=== PATIENT | female | born 1935 | race Caucasian/White ===

== ENCOUNTER 2018-02-16 12:50 | Inpatient (IN) | payer OTHER ==
[2018-02-16] VITALS (12 sets, daily range): BP systolic 106–149; BP diastolic 50–75
[~2018-02-16] VITALS: Ht 162.6 cm; Wt 99.6 kg
[~2018-02-16 12:50] MED LIST: ACIPHEX20 MG PO; ADVAIR DISK1 INH; ALLOPURINOL100 MG PO; AMITRIPTYLIN10 MG PO; AVELOX400 MG PO; CALCIUM600 M3 OR; CIPRO500 MG PO; DIGOXIN0.125 MG PO; DOCUSATE SOD100 MG PO; ELAVIL10 MG PO; ELTROXIN PO; ENALAPRIL20 MG PO; EZETROL PO; FUROSEMIDE40 MG PO; HYDROCORTISONE 1%; LEVOTHYROXIN150 MC1 PO; LIPITOR10 MG PO; LOSARTAN POT50 MG PO; METFORMIN500 MG PO; MICROLET; NORVASC10 MG PO; NUCYNTA50 MG OR; NUCYNTA75 MG OR; OMEPRAZOLE20 MG PO; PLAVIX75 MG PO; PREDNISONE20 MG PO; PROAIR HFA IN; PROTONIX40 M2 PO; QUININE PO; ROBITUSSIN AC10 ML PO; SYNTHROID200 MCG OR; TAM75CAP PO; TEARS PLUS OP; TRAMADOL HYDROC OR; TYLENOL ARTH650 M1 OR; VITAMIN D1000 UNIT OR; XALATAN0.005 % OP; ZEBETA5 MG PO; ZETIA10 MG PO; ZOVIRAX5 % EX; ZPAK PO; [UNRECOGNIZED DRUG - OTHER] PO; [UNRECOGNIZED DRUG - OTHER] PO
[2018-02-16] MEDS ORDERED: LOSARTAN POTASS50 MG PO (13:25)
[2018-02-16] MEDS ORDERED: BISOPROL FUM5 MG PO (13:32)
[2018-02-16 13:36] LABS: HEMOGLOBIN 11.6 g/dl (12.0-16.0); IMMATURE GRANULOCYTES 1.7 % (0.0-5.0); MEAN CELL VOLUME 86.4 fL CALC (80.0-100.0); MEAN CORPUSCULAR HGB 26.4 pG CALC (26.0-32.0); MEAN CORPUSCULAR HGB CONC 30.5 g/L CALC (32.0-36.0); NEUT# 7.26 thou/uL (2.00-7.15); RED BLOOD COUNT 4.4 mill/uL (4.20-5.60); RED CELL DISTRI WIDTH 15.6 % (11.5-15.5)
[2018-02-16 13:55] LABS: ANION GAP 20 (6-22 (CALC)); BUN 25 mg/dL (8-23); BUN/CREATININE RATIO 23 (12-20 (CALC)); CARBON DIOXIDE 23 mmol/l (22-30); CHLORIDE 96 mmol/l (95-108); CREATININE 1.1 mg/dL (0.5-1.0); GFR 48 ML/MIN (>=60 (CALC)); GFR FOR AFR.AMER. 58 ML/MIN (>=60 (CALC)); POTASSIUM 4.1 mmol/l (3.5-5.1); SODIUM 135 mmol/l (137-146)
[2018-02-16 15:35] LABS: URINE BILIRUBIN - DIPSTICK NEGATIVE (NEGATIVE); URINE BLOOD DIPSTICK NEGATIVE (NEGATIVE); URINE COLOR YELLOW; URINE GLUCOSE - DIPSTICK 500 mg/dL (NEGATIVE); URINE KETONE NEGATIVE (NEGATIVE); URINE LEUK ESTERASE NEGATIVE (Negative); URINE NITRITE - DIPSTICK NEGATIVE (Negative); URINE PH 5.5 (4.5-8.0); URINE PROTEIN - DIPSTICK 30 mg/dL (NEG-TRACE); URINE SPECIFIC GRAVITY 1.015; URINE UROBILINOGEN - DIPSTICK 0.2 E.U./dL (0.2)
[2018-02-16 15:40] LABS: URINE CLARITY CLEAR
[2018-02-16] MEDS ORDERED: JANUMET1 TA1 PO (16:41)
[2018-02-16] MEDS ORDERED: GLICLAZIDE PO (16:44)
[2018-02-16] MEDS ORDERED: METFORMIN500 MG PO (16:45)
[2018-02-16] MEDS ORDERED: METRONIDAZOL0.752 TOP (16:49)
[2018-02-16] MEDS ORDERED: HYDROMORPHONE HC8 M1 PO (16:58)
[2018-02-16] MEDS ORDERED: RANITIDINE150 M1 PO (16:58)
[2018-02-16] MEDS ORDERED: XARELTO10 MG PO (16:59)
[2018-02-16] MEDS ORDERED: HYDRALAZINE10 MG PO (16:59)
[2018-02-16] MEDS ORDERED: HERBAL LAXATIVE PO (17:01)
[2018-02-16] MEDS ORDERED: SPIRONOLACTONE25 MG PO (17:01)
[2018-02-16 22:10] LABS: URINE MUCUS FEW hpf (NONE-FEW); URINE SQUAMOUS EPITHELIAL CELL FEW EPI/hpf (0-FEW)
[2018-02-17] VITALS (24 sets, daily range): BP systolic 116–183; BP diastolic 56–100
[2018-02-17 05:46] LABS: IMMATURE GRANULOCYTES 1.1 % (0.0-5.0); MEAN CELL VOLUME 83.5 fL CALC (80.0-100.0); MEAN CORPUSCULAR HGB 26.1 pG CALC (26.0-32.0); MEAN CORPUSCULAR HGB CONC 31.3 g/L CALC (32.0-36.0); NEUT# 5.88 thou/uL (2.00-7.15); RED BLOOD COUNT 3.64 mill/uL (4.20-5.60); RED CELL DISTRI WIDTH 15.5 % (11.5-15.5)
[2018-02-17 05:53] LABS: HEMATOCRIT 30.4 % (37.0-47.0); HEMOGLOBIN 9.5 g/dl (12.0-16.0)
[2018-02-17 06:04] LABS: ALKALINE PHOSPHATASE 72 u/l (38-126); ANION GAP 13 (6-22 (CALC)); BILIRUBIN, TOTAL 0.3 mg/dL (0.0-1.4); BUN 21 mg/dL (8-23); BUN/CREATININE RATIO 26 (12-20 (CALC)); CARBON DIOXIDE 23 mmol/l (22-30); CHLORIDE 104 mmol/l (95-108); CREATININE 0.8 mg/dL (0.5-1.0); GFR > 60 ML/MIN (>=60 (CALC)); GFR FOR AFR.AMER. > 60 ML/MIN (>=60 (CALC)); MAGNESIUM 1.9 mg/dL (1.6-2.3); POTASSIUM 3.9 mmol/l (3.5-5.1); SGOT/AST 34 u/l (9-36); SODIUM 136 mmol/l (137-146); TOTAL PROTEIN 5.8 g/dL (6.3-8.2)
[2018-02-17 06:19] LABS: ALBUMIN 3.1 g/dL (3.2-5.0)
[2018-02-18] VITALS (12 sets, daily range): BP systolic 142–164; BP diastolic 63–90
[2018-02-18 05:03] LABS: HEMATOCRIT 30.3 % (37.0-47.0); HEMOGLOBIN 9.5 g/dl (12.0-16.0); MEAN CELL VOLUME 84.2 fL CALC (80.0-100.0); MEAN CORPUSCULAR HGB 26.4 pG CALC (26.0-32.0); MEAN CORPUSCULAR HGB CONC 31.4 g/L CALC (32.0-36.0); RED BLOOD COUNT 3.6 mill/uL (4.20-5.60); RED CELL DISTRI WIDTH 15.7 % (11.5-15.5)
[2018-02-18 05:31] LABS: ANION GAP 11 (6-22 (CALC)); BUN 21 mg/dL (8-23); BUN/CREATININE RATIO 25 (12-20 (CALC)); CARBON DIOXIDE 27 mmol/l (22-30); CHLORIDE 106 mmol/l (95-108); CREATININE 0.9 mg/dL (0.5-1.0); GFR 60 ML/MIN (>=60 (CALC)); GFR FOR AFR.AMER. > 60 ML/MIN (>=60 (CALC)); SODIUM 139 mmol/l (137-146)
[2018-02-19] VITALS (13 sets, daily range): BP systolic 135–184; BP diastolic 68–100
[2018-02-19 05:13] LABS: HEMATOCRIT 31.5 % (37.0-47.0); HEMOGLOBIN 9.9 g/dl (12.0-16.0); MEAN CELL VOLUME 85.6 fL CALC (80.0-100.0); MEAN CORPUSCULAR HGB 26.9 pG CALC (26.0-32.0); MEAN CORPUSCULAR HGB CONC 31.4 g/L CALC (32.0-36.0); RED BLOOD COUNT 3.68 mill/uL (4.20-5.60); RED CELL DISTRI WIDTH 15.9 % (11.5-15.5)
[2018-02-19 05:36] LABS: ANION GAP 12 (6-22 (CALC)); BUN 27 mg/dL (8-23); BUN/CREATININE RATIO 34 (12-20 (CALC)); CARBON DIOXIDE 26 mmol/l (22-30); CHLORIDE 105 mmol/l (95-108); CREATININE 0.8 mg/dL (0.5-1.0); GFR > 60 ML/MIN (>=60 (CALC)); GFR FOR AFR.AMER. > 60 ML/MIN (>=60 (CALC)); POTASSIUM 4.5 mmol/l (3.5-5.1); SODIUM 138 mmol/l (137-146)
[2018-02-20] VITALS (9 sets, daily range): BP systolic 142–184; BP diastolic 76–109
[2018-02-20 05:15] LABS: HEMOGLOBIN 9.8 g/dl (12.0-16.0); MEAN CORPUSCULAR HGB 26.6 pG CALC (26.0-32.0); MEAN CORPUSCULAR HGB CONC 31.6 g/L CALC (32.0-36.0); RED BLOOD COUNT 3.69 mill/uL (4.20-5.60); RED CELL DISTRI WIDTH 15.7 % (11.5-15.5)
[2018-02-20 05:43] LABS: ANION GAP 10 (6-22 (CALC)); BUN 33 mg/dL (8-23); BUN/CREATININE RATIO 37 (12-20 (CALC)); CARBON DIOXIDE 31 mmol/l (22-30); CHLORIDE 102 mmol/l (95-108); CREATININE 0.9 mg/dL (0.5-1.0); GFR 60 ML/MIN (>=60 (CALC)); GFR FOR AFR.AMER. > 60 ML/MIN (>=60 (CALC)); POTASSIUM 4.2 mmol/l (3.5-5.1); SODIUM 138 mmol/l (137-146)
[2018-02-21] VITALS (7 sets, daily range): BP systolic 141–170; BP diastolic 70–94
[2018-02-21 05:20] LABS: HEMATOCRIT 32.1 % (37.0-47.0); MEAN CELL VOLUME 82.9 fL CALC (80.0-100.0); MEAN CORPUSCULAR HGB 25.8 pG CALC (26.0-32.0); MEAN CORPUSCULAR HGB CONC 31.2 g/L CALC (32.0-36.0); RED BLOOD COUNT 3.87 mill/uL (4.20-5.60); RED CELL DISTRI WIDTH 15.6 % (11.5-15.5)
[2018-02-21 05:30] LABS: ANION GAP 15 (6-22 (CALC)); BUN 37 mg/dL (8-23); BUN/CREATININE RATIO 43 (12-20 (CALC)); CARBON DIOXIDE 32 mmol/l (22-30); CHLORIDE 97 mmol/l (95-108); CREATININE 0.9 mg/dL (0.5-1.0); GFR 60 ML/MIN (>=60 (CALC)); GFR FOR AFR.AMER. > 60 ML/MIN (>=60 (CALC)); POTASSIUM 4.3 mmol/l (3.5-5.1); SODIUM 140 mmol/l (137-146)
[2018-02-22 04:06] VITALS: BP 164/72
[2018-02-22 05:40] LABS: HEMOGLOBIN 9.8 g/dl (12.0-16.0); IMMATURE GRANULOCYTES 2.5 % (0.0-5.0); MEAN CELL VOLUME 83.1 fL CALC (80.0-100.0); MEAN CORPUSCULAR HGB 26.3 pG CALC (26.0-32.0); MEAN CORPUSCULAR HGB CONC 31.6 g/L CALC (32.0-36.0); NEUT# 9.68 thou/uL (2.00-7.15); RED BLOOD COUNT 3.73 mill/uL (4.20-5.60); RED CELL DISTRI WIDTH 15.5 % (11.5-15.5)
[2018-02-22 05:47] LABS: ALBUMIN 3.3 g/dL (3.2-5.0); ALKALINE PHOSPHATASE 62 u/l (38-126); ANION GAP 12 (6-22 (CALC)); BILIRUBIN, TOTAL 0.6 mg/dL (0.0-1.4); BUN 40 mg/dL (8-23); BUN/CREATININE RATIO 55 (12-20 (CALC)); CARBON DIOXIDE 36 mmol/l (22-30); CHLORIDE 94 mmol/l (95-108); CREATININE 0.7 mg/dL (0.5-1.0); GFR > 60 ML/MIN (>=60 (CALC)); GFR FOR AFR.AMER. > 60 ML/MIN (>=60 (CALC)); POTASSIUM 4.3 mmol/l (3.5-5.1); SGOT/AST 50 u/l (9-36); SODIUM 137 mmol/l (137-146); TOTAL PROTEIN 6.1 g/dL (6.3-8.2)
[2018-02-22 07:41] VITALS: BP 165/86
[2018-02-22 11:10] VITALS: BP 132/73
[2018-02-22 15:25] VITALS: BP 166/85
[2018-02-22 19:42] VITALS: BP 145/77
[2018-02-22 23:54] VITALS: BP 146/75
[2018-02-23 03:51] VITALS: BP 140/75
[2018-02-23 08:27] VITALS: BP 120/64
[2018-02-23 11:45] VITALS: BP 102/60
[2018-02-23] MEDS ORDERED: DOXYCYC MONO100 M2 PO (13:57)
[2018-02-23] MEDS ORDERED: CLOTRIMAZOLE10 MG MT (13:57)
[2018-02-23] MEDS ORDERED: XARELTO10 MG PO (13:57)
[2018-02-23] MEDS ORDERED: IPRATROPIU0.5 MG/3 M IN (14:03)
[2018-02-23] MEDS ORDERED: MEDDOSEPAK PO (14:09)
== END 2018-02-23 14:40 | disposition home or self-care (01) | DRG 208 ==
LOC: ED 12:50 → ED-I 13:46 → ED 14:18 → MS2 14:19 → ICU 15:42 → MS2 17:10 → ICU 17:10 → MS2 02-20 14:33
PROVIDERS: Family Medicine; ADMIT Internal Medicine Nephrology; ATTEND Internal Medicine
PROC: 0BH17EZ Insertion of Endotracheal Airway into Trachea, Via Natural or Artificial Opening (ICD-10-PCS; principal; 2018-02-16)
PROC: 5A1935Z Respiratory Ventilation, Less than 24 Consecutive Hours (ICD-10-PCS; 2018-02-16)
PROC: 0T9B70Z Drainage of Bladder with Drainage Device, Via Natural or Artificial Opening (ICD-10-PCS; 2018-02-16)
PROC: 02HV33Z Insertion of Infusion Device into Superior Vena Cava, Percutaneous Approach (ICD-10-PCS; 2018-02-16)
DX: J18.9 Pneumonia, unspecified organism (principal); J96.02 Acute respiratory failure with hypercapnia; J96.01 Acute respiratory failure with hypoxia; J44.0 Chronic obstructive pulmonary disease with (acute) lower respiratory infection; J44.1 Chronic obstructive pulmonary disease with (acute) exacerbation; E87.2 Acidosis; B37.0 Candidal stomatitis; I10 Essential (primary) hypertension; E11.9 Type 2 diabetes mellitus without complications; E78.5 Hyperlipidemia, unspecified; M10.9 Gout, unspecified; F32.9 Major depressive disorder, single episode, unspecified; E55.9 Vitamin D deficiency, unspecified; I25.10 Atherosclerotic heart disease of native coronary artery without angina pectoris; E03.9 Hypothyroidism, unspecified; I48.0 Paroxysmal atrial fibrillation; F41.1 Generalized anxiety disorder; E87.70 Fluid overload, unspecified; G89.29 Other chronic pain; T38.0X5A Adverse effect of glucocorticoids and synthetic analogues, initial encounter; T36.95XA Adverse effect of unspecified systemic antibiotic, initial encounter; Z79.891 Long term (current) use of opiate analgesic; Z95.5 Presence of coronary angioplasty implant and graft; Z79.01 Long term (current) use of anticoagulants; Z79.4 Long term (current) use of insulin
CPT/HCPCS: J0692; J1650; J3370; Q9967; S0164